=== PATIENT | male | born 1945 | race Caucasian/White ===

== ENCOUNTER 2019-03-24 11:32 | Inpatient (IN) | payer MEDICARE ==
[2019-03-24] MEDS ORDERED: Sodium Chloride 0.9% 10 ML Syringe FLUSH PRN (11:57)
[2019-03-24] MEDS: Levofloxacin/Dextrose 5%-Water 500 MG in Premix Bag 1 BAG IV SCH (13:00)
[2019-03-24] MEDS: Albuterol 0.083% 2.5 MG/3 ML Neb Soln NEB SCH ×3 (13:02→19:23)
[2019-03-24] MEDS: Dextrose 5%-0.9% NaCl 1,000 ML IV SCH (13:24)
[2019-03-24] MEDS: cefTRIAXone 1 GM in Sodium Chloride 0.9% 50 ML IV SCH (14:26)
--- NOTE | 2019-03-24 15:53 | CR ---
CHEST: 2 view CLINICAL HISTORY:Pneumonia COMPARISON:03/19/2019 FINDINGS: Patient is diffuse bilateral pulmonary infiltrates. The left lung infiltrate has increased since prior study. There is a new right perihilar infiltrate. There is a left pleural effusion Impression: Diffuse increasing bilateral pneumonic infiltrates Left pleural effusion
[2019-03-24] MEDS: metFORMIN 500 MG Tab PO SCH (16:31)
--- NOTE | 2019-03-24 18:23 | PCM.HP.2 ---
H&P History of Present Illness - General Date of Service: 03/24/19 Admit Problem/Dx: Admission Diagnosis/Problem Admission Diagnosis/Problem Respiratory distress Source of Information: Patient History Limitations: Reports: No Limitations - History of Present Illness Initial Comments - Free Text/Narative: Hollis came in last week and had pneumonia with fluid in his lungs and was started on Amoxicillin 500 mg tid. He came in today in respiratory distress with O2 pulse ox of 88%. with exertion went to 88%. He has not been improving and was admitted to the hospital. He has a history of pneumonia in the past 2 years ago. Onset of Symptoms: Reports: Other (gradual onset 1 week ago) Duration of Symptoms: Reports: Week(s): Worsens with: Reports: Movement - Related Data Allergies/Adverse Reactions: Allergies Allergy/AdvReac Type Severity Reaction Status Date / Time No Known Allergies Allergy Verified 09/07/14 10:19 Home Medications: Home Meds Lisinopril 20 mg PO DAILY 09/03/14 [History] Naproxen Sodium [Aleve] 440 mg PO BID 09/07/14 [History] Aspirin 81 mg PO DAILY 03/24/19 [History] Metoprolol Succinate [Toprol XL] 25 mg PO DAILY 03/24/19 [History] Simvastatin 20 mg PO DAILY 03/24/19 [History] metFORMIN [Glucophage] 500 mg PO BIDMEALS 03/24/19 [History] Past Medical History HEENT History: Reports: None Cardiovascular History: Reports: High Cholesterol, SOB on Exertion Respiratory History: Reports: SOB Gastrointestinal History: Reports: None Genitourinary History: Reports: None Musculoskeletal History: Reports: Osteoarthritis Neurological History: Reports: None Psychiatric History: Reports: None Endocrine/Metabolic History: Reports: Diabetes, Type II Hematologic History: Reports: None Immunologic History: Reports: None Oncologic (Cancer) History: Reports: None Dermatologic History: Reports: None - Infectious Disease History Infectious Disease History: Reports: None - Past Surgical History Head Surgeries/Procedures: Reports: None HEENT Surgical History: Reports: None Cardiovascular Surgical History: Reports: Coronary Artery Stent Respiratory Surgical History: Reports: None GI Surgical History: Reports: Colonoscopy Male Surgical History: Reports: None Endocrine Surgical History: Reports: None Neurological Surgical History: Reports: None Musculoskeletal Surgical History: Reports: Hip Replacement Oncologic Surgical History: Reports: None Dermatological Surgical History: Reports: None Social & Family History - Tobacco Use Smoking Status *Q: Never Smoker Second Hand Smoke Exposure: No - Caffeine Use Caffeine Use: Reports: Coffee - Alcohol Use Days Per Week of Alcohol Use: 7 Number of Drinks Per Day: 1 Total Drinks Per Week: 7 - Recreational Drug Use Recreational Drug Use: No H&P Review of Systems - Review of Systems: Review Of Systems: See Below General: Reports: Fever, Weakness, Decreased Appetite HEENT: Reports: No Symptoms Pulmonary: Reports: Shortness of Breath, Wheezing, Cough Cardiovascular: Reports: Dyspnea on Exertion Genitourinary: Reports: No Symptoms Skin: Reports: No Symptoms Psychiatric: Reports: No Symptoms Neurological: Reports: Difficulty Walking, Weakness Exam - Exam Exam: See Below - Vital Signs Vital Signs: Last Vital Signs Temp 98.2 F 03/24/19 14:59 Pulse 97 03/24/19 16:28 Resp 24 H 03/24/19 16:28 BP 157/51 H 03/24/19 14:59 Pulse Ox 91 L 03/24/19 16:28 Weight: 190 lb - Exam General: Alert, Oriented, Cooperative, Moderate Distress HEENT: PERRLA, Conjunctiva Clear, EACs Clear, Hearing Intact, Mucosa Moist & [place], Nares Patent, Normal Nasal Septum, Posterior Pharynx Clear, Pupils Equal, Pupils Reactive, TMs Clear Neck: Supple, Trachea Midline, 2 Lungs: Decreased Breath Sounds, Other (crepitations and lung sounds on the left.) Cardiovascular: Regular Rate, Regular Rhythm GI/Abdominal Exam: Normal Bowel Sounds, Soft, Non-Tender, No Organomegaly, No Distention, No Abnormal Bruit, No Mass, Pelvis Stable Back Exam: Normal Inspection, Full Range of Motion, NT Extremities: Normal Inspection, Normal Range of Motion, Non-Tender, No Pedal Edema, Normal Capillary Refill Peripheral Pulses: 1+: Radial (L), Radial (R) Neuro Extensive - Mental Status: Alert, Oriented x3 DTR: 1+: Bicep (L), Bicep (R) Psychiatric: Alert, Normal Affect, Normal Mood - Patient Data Lab Results Last 24 hrs: Laboratory Results - last 24 hr 03/24/19 03/24/19 03/24/19 Range/Units 12:02 12:28 12:28 WBC 15.5 H (4.5-11.0) K/uL RBC 4.62 (4.30-5.90) M/uL Hgb 13.6 (12.0-15.0) g/dL Hct 41.6 (40.0-54.0) % MCV 90 (80-98) fL MCH 29 (27-31) pg MCHC 33 (32-36) % Plt Count 446 H (150-400) K/uL Neut % (Auto) 90 H (36-66) % Lymph % (Auto) 4 L (24-44) % [place] % (Auto) 4 (2-6) % Eos % (Auto) 1 L (2-4) % Baso % (Auto) 0 (0-1) % Sodium 137 L (140-148) mmol/L Potassium 4.1 (3.6-5.2) mmol/L Chloride 100 (100-108) mmol/L Carbon Dioxide 27 (21-32) mmol/L Anion Gap 14.1 H (5.0-14.0) mmol/L BUN 21 H (7-18) mg/dL Creatinine 0.8 (0.8-1.3) mg/dL Est Cr Clr Drug Dosing 78.03 mL/min Estimated GFR (MDRD) > 60 (>60) Glucose 132 H (74-106) mg/dL Calcium 8.6 (8.5-10.1) mg/dL Total Bilirubin 0.6 (0.2-1.0) mg/dL AST 69 H (15-37) U/L ALT 88 H (12-78) U/L Alkaline Phosphatase 291 H (46-116) U/L Total Protein 6.6 (6.4-8.2) g/dL Albumin 2.1 L (3.4-5.0) g/dL Globulin 4.5 H (2.3-3.5) g/dL Albumin/Globulin Ratio 0.5 L (1.2-2.2) Urine Color [place] A (YELLOW) Urine Appearance Clear (CLEAR) Urine pH 6.0 (5.0-8.0) Ur Specific [place] 1.025 (1.008-1.030) Urine Protein 100 H (NEGATIVE) mg/dL Urine Glucose (UA) Negative (NEGATIVE) mg/dL Urine Ketones Negative (NEGATIVE) mg/dL Urine Occult Blood Trace-intact H (NEGATIVE) Urine Nitrite Negative (NEGATIVE) Urine Bilirubin Small H (NEGATIVE) Urine Urobilinogen 2.0 H (0.2-1.0) EU/dL Ur Leukocyte Esterase Negative (NEGATIVE) Urine RBC 0-5 (0-5) Urine WBC Not seen (0-5) Ur Epithelial Cells Not seen Amorphous Sediment Few Urine Bacteria Not seen Urine Mucus Not seen Result Diagrams: 03/24/19 12:28 03/24/19 12:28 Law Results Last 24 hrs: Microbiology 03/24/19 11:54 Gram Stain - Final Sputum - Expectorated Sepsis Event Note - Evaluation Sepsis Screening Result: No Definite Risk - Focused Exam Vital Signs: Vital Signs Temp Pulse Resp BP Pulse Ox Pulse Ox 03/24/19 16:28 97 24 H 91 L 03/24/19 14:59 98.2 F 95 20 157/51 H 90 L 03/24/19 13:02 90 96 03/24/19 11:35 97.8 F 89 20 145/77 H 86 L Date Exam was Performed: 03/24/19 Time Exam was Performed: 18:34 Problem List Initiated/Reviewed/Updated: Yes Orders Last 24hrs: Active Orders 24 hr Category Date Time Status Admission Status [Patient Status] [ADT] Routine ADT 03/24/19 11:45 Active Communication Order [RC] ROUTINE Care 03/24/19 12:13 Active Oxygen Therapy [RC] ASDIRECTED Care 03/24/19 12:00 Active Peripheral IV Care [RC] Q12H Care 03/24/19 11:57 Active RT Aerosol Therapy [RC] ASDIRECTED Care 03/24/19 12:00 Active Regular Diet [DIET] Diet 03/24/19 Lunch Active CULTURE BLOOD [BC] Urgent Lab 03/24/19 12:25 Received CULTURE BLOOD [BC] Urgent Lab 03/24/19 12:29 Received CULTURE RESPIRATORY + SMEAR [RM] Routine Lab 03/24/19 11:54 Results GLUCOSE POC LAB TO COLLECT [POC] QIDACANDBED Lab 03/24/19 21:00 Ordered GLUCOSE POC LAB TO COLLECT [POC] QIDACANDBED Lab 03/25/19 07:30 Ordered GLUCOSE POC LAB TO COLLECT [POC] QIDACANDBED Lab 03/25/19 11:30 Ordered GLUCOSE POC LAB TO COLLECT [POC] QIDACANDBED Lab 03/25/19 16:30 Ordered GLUCOSE POC LAB TO COLLECT [POC] QIDACANDBED Lab 03/25/19 21:00 Ordered GLUCOSE POC LAB TO COLLECT [POC] QIDACANDBED Lab 03/26/19 07:30 Ordered GLUCOSE POC LAB TO COLLECT [POC] QIDACANDBED Lab 03/26/19 11:30 Ordered GLUCOSE POC LAB TO COLLECT [POC] QIDACANDBED Lab 03/26/19 16:30 Ordered GLUCOSE POC LAB TO COLLECT [POC] QIDACANDBED Lab 03/26/19 21:00 Ordered GLUCOSE POC LAB TO COLLECT [POC] QIDACANDBED Lab 03/27/19 07:30 Ordered GLUCOSE POC LAB TO COLLECT [POC] QIDACANDBED Lab 03/27/19 11:30 Ordered GLUCOSE POC LAB TO COLLECT [POC] QIDACANDBED Lab 03/27/19 16:30 Ordered GLUCOSE POC LAB TO COLLECT [POC] QIDACANDBED Lab 03/27/19 21:00 Ordered GLUCOSE POC LAB TO COLLECT [POC] QIDACANDBED Lab 03/28/19 07:30 Ordered GLUCOSE POC LAB TO COLLECT [POC] QIDACANDBED Lab 03/28/19 11:30 Ordered GLUCOSE POC LAB TO COLLECT [POC] QIDACANDBED Lab 03/28/19 16:30 Ordered Albuterol [Proventil Neb Soln] Med 03/24/19 12:00 Active 2.5 mg NEB Q4H Aspirin Med 03/25/19 09:00 Active 81 mg PO DAILY Dextrose 5%-0.9% NaCl [Dextrose 5%-Normal Saline] 1,000 Med 03/24/19 12:00 Active ml IV ASDIRECTED Levofloxacin/Dextrose 5%-Water [Levaquin in D5W 500 MG/ Med 03/24/19 13:00 Active 100 ML] 500 mg Premix Bag 1 bag IV Q24H Metoprolol Succinate [Toprol XL] Med 03/25/19 09:00 Active 25 mg PO DAILY Simvastatin [Zocor] Med 03/25/19 09:00 Active 20 mg PO DAILY Sodium Chloride 0.9% [Saline Flush] Med 03/24/19 11:57 Active 10 ml FLUSH ASDIRECTED PRN cefTRIAXone [Rocephin] 1 gm Med 03/24/19 14:00 Active Sodium Chloride 0.9% [Normal Saline] 50 ml IV Q24H lisinopriL [Prinivil] Med 03/25/19 09:00 Active 20 mg PO DAILY metFORMIN [Glucophage] Med 03/24/19 17:00 Active 500 mg PO BIDMEALS Blood Culture x2 Reflex Set [OM.PC] Urgent Oth 03/24/19 11:52 Ordered Peripheral IV Insertion Adult [OM.PC] Routine Oth 03/24/19 11:57 Ordered Medication Orders Albuterol (Proventil Neb Soln) 2.5 mg NEB Q4H [facility] Last Admin: 03/24/19 16:29 Dose: 2.5 mg Admin: 03/24/19 13:02 Dose: 2.5 mg Aspirin (Aspirin) 81 mg PO DAILY [facility] Ceftriaxone Sodium 1 gm/ (Sodium Chloride) 50 mls @ 100 mls/hr IV Q24H [facility] Last Admin: 03/24/19 14:26 Dose: 100 mls/hr Dextrose/Sodium Chloride (Dextrose 5%-Normal Saline) 1,000 mls @ 75 mls/hr IV ASDIRECTED [facility] Last Admin: 03/24/19 13:24 Dose: 75 mls/hr Levofloxacin/Dextrose 500 mg/ (Premix) 100 mls @ 100 mls/hr IV Q24H [facility] Last Admin: 03/24/19 13:00 Dose: 100 mls/hr Lisinopril (Prinivil) 20 mg PO DAILY [facility] Metformin HCl (Glucophage) 500 mg PO BIDMEALS [facility] Last Admin: 03/24/19 16:31 Dose: 500 mg Metoprolol Succinate (Toprol Xl) 25 mg PO DAILY [facility] Simvastatin (Zocor) 20 mg PO DAILY [facility] Sodium Chloride (Saline Flush) 10 ml FLUSH ASDIRECTED PRN PRN Reason: Keep Vein Open Assessment/Plan Comment:: Assessment/Plan: #1. Pneumonia left side: Have admitted to the hospital and start antibiotics. Cultures are pending. He will be on Oxygen as his pul ox was 88%. #2. ASHD stable #3. HTN: Will continue with Meds #4. DM II will watch blood sugars. #5. HLD: will continue with Simvastatin 20 mg. - Mortality Measure Prognosis:: Good
[2019-03-24] MEDS: Acetaminophen 325 MG Tab PO PRN (19:31)
[2019-03-24] MEDS ORDERED: Simvastatin 20 MG Tab PO SCH (21:00)
[2019-03-24] MEDS: Insulin Lispro 100 Unit/ML 3 ML KwikPen SUBCUT SCH (22:01)
[2019-03-25] MEDS: Albuterol 0.083% 2.5 MG/3 ML Neb Soln NEB SCH ×7 (00:28→23:18)
[2019-03-25] MEDS: Dextrose 5%-0.9% NaCl 1,000 ML IV SCH ×2 (03:04→17:53)
[2019-03-25] MEDS: Insulin Lispro 100 Unit/ML 3 ML KwikPen SUBCUT SCH ×4 (07:26→21:30)
[2019-03-25] MEDS: Metoprolol Succinate 25 MG Tab.ER PO SCH (09:23)
[2019-03-25] MEDS: Aspirin 81 MG Tab.Chew PO SCH (09:23)
[2019-03-25] MEDS: Lisinopril 20 MG Tab PO SCH (09:24)
[2019-03-25] MEDS: metFORMIN 500 MG Tab PO SCH ×2 (09:24→16:52)
[2019-03-25] MEDS: Simvastatin 20 MG Tab PO SCH (09:24)
--- NOTE | 2019-03-25 13:23 | PCM.PN ---
- General Info Date of Service: 03/25/19 Functional Status: Reports: Pain Controlled - Review of Systems General: Reports: Weakness, Fatigue Pulmonary: Reports: Shortness of Breath, Cough, Sputum Cardiovascular: Reports: No Symptoms Gastrointestinal: Reports: No Symptoms Genitourinary: Reports: No Symptoms Musculoskeletal: Reports: No Symptoms Skin: Reports: No Symptoms Neurological: Reports: No Symptoms Psychiatric: Reports: No Symptoms - Patient Data Vitals - Most Recent: Last Vital Signs Temp 96.7 F 03/25/19 10:42 Pulse 78 03/25/19 10:48 Resp 16 03/25/19 10:42 BP 140/68 03/25/19 10:42 Pulse Ox 95 03/25/19 10:42 Weight - Most Recent: 190 lb I&O - Last 24 Hours: Intake & Output 03/24/19 03/25/19 03/25/19 22:59 06:59 14:59 Intake Total 811 978 240 Output Total 400 Balance 811 978 -160 Lab Results Last 24 Hours: Laboratory Results - last 24 hr 03/24/19 Range/Units 12:02 Urine Color [place] A (YELLOW) Urine Appearance Clear (CLEAR) Urine pH 6.0 (5.0-8.0) Ur Specific [place] 1.025 (1.008-1.030) Urine Protein 100 H (NEGATIVE) mg/dL Urine Glucose (UA) Negative (NEGATIVE) mg/dL Urine Ketones Negative (NEGATIVE) mg/dL Urine Occult Blood Trace-intact H (NEGATIVE) Urine Nitrite Negative (NEGATIVE) Urine Bilirubin Small H (NEGATIVE) Urine Urobilinogen 2.0 H (0.2-1.0) EU/dL Ur Leukocyte Esterase Negative (NEGATIVE) Urine RBC 0-5 (0-5) Urine WBC Not seen (0-5) Ur Epithelial Cells Not seen Amorphous Sediment Few Urine Bacteria Not seen Urine Mucus Not seen Law Results Last 24 Hours: Microbiology 03/24/19 12:29 Aerobic Blood Culture - Preliminary Blood - Arm, Right NO GROWTH AFTER 1 DAY Anaerobic Blood Culture - Preliminary NO GROWTH AFTER 1 DAY 03/24/19 12:25 Aerobic Blood Culture - Preliminary Blood - Arm, Left NO GROWTH AFTER 1 DAY Anaerobic Blood Culture - Preliminary NO GROWTH AFTER 1 DAY 03/24/19 11:54 Gram Stain - Final Sputum - Expectorated Med Orders - Current: Current Medications Acetaminophen (Tylenol) 650 mg PO Q4H PRN PRN Reason: Fever/Headache Last Admin: 03/24/19 19:31 Dose: 650 mg Albuterol (Proventil Neb Soln) 2.5 mg NEB Q4H [facility] Last Admin: 03/25/19 10:48 Dose: 2.5 mg Aspirin (Aspirin) 81 mg PO DAILY [facility] Last Admin: 03/25/19 09:23 Dose: 81 mg Ceftriaxone Sodium 1 gm/ (Sodium Chloride) 50 mls @ 100 mls/hr IV Q24H [facility] Last Admin: 03/24/19 14:26 Dose: 100 mls/hr Dextrose/Sodium Chloride (Dextrose 5%-Normal Saline) 1,000 mls @ 75 mls/hr IV ASDIRECTED [facility] Last Admin: 03/25/19 03:04 Dose: 75 mls/hr Levofloxacin/Dextrose 500 mg/ (Premix) 100 mls @ 100 mls/hr IV Q24H [facility] Last Admin: 03/24/19 13:00 Dose: 100 mls/hr Insulin Human Lispro (Humalog) 0 unit SUBCUT QIDACANDBED [facility]; Protocol Last Admin: 03/25/19 11:29 Dose: 3 unit Lisinopril (Prinivil) 20 mg PO DAILY [facility] Last Admin: 03/25/19 09:24 Dose: 20 mg Metformin HCl (Glucophage) 500 mg PO BIDMEALS [facility] Last Admin: 03/25/19 09:24 Dose: 500 mg Metoprolol Succinate (Toprol Xl) 25 mg PO DAILY [facility] Last Admin: 03/25/19 09:23 Dose: 25 mg Simvastatin (Zocor) 20 mg PO DAILY [facility] Last Admin: 03/25/19 09:24 Dose: 20 mg Sodium Chloride (Saline Flush) 10 ml FLUSH ASDIRECTED PRN PRN Reason: Keep Vein Open Discontinued Medications Albuterol (Proventil Neb Soln) 2.5 mg NEB Q4H [facility] Last Admin: 03/25/19 07:08 Dose: 2.5 mg - Exam General: Alert, Oriented HEENT: Pupils Equal, Pupils Reactive, EOMI, Mucous Membr. Moist/[place] Neck: Supple Lungs: Decreased Breath Sounds, Rales, Wheezing Cardiovascular: Regular Rate, Regular Rhythm GI/Abdominal Exam: Normal Bowel Sounds, Soft, Non-Tender, No Organomegaly, No Distention, No Abnormal Bruit, No Mass, Pelvis Stable Back Exam: Normal Inspection, Full Range of Motion Extremities: Normal Inspection, Normal Range of Motion, Non-Tender, No Pedal Edema, Normal Capillary Refill Peripheral Pulses: 1+: Radial (L), Radial (R) Skin: Warm, Dry, Intact Neurological: No New Focal Deficit Psy/Mental Status: Alert, Normal Affect, Normal Mood Sepsis Event Note - Evaluation Sepsis Screening Result: No Definite Risk - Focused Exam Vital Signs: Vital Signs Temp Pulse Pulse Resp BP BP Pulse Ox 03/25/19 10:48 78 03/25/19 10:42 96.7 F 74 16 140/68 95 03/25/19 09:24 128/56 L 03/25/19 09:23 80 128/56 L 03/25/19 07:09 88 03/25/19 07:00 98.1 F 81 20 136/68 91 L 03/25/19 03:00 98.7 F 82 18 144/78 H 91 L Date Exam was Performed: 03/25/19 Time Exam was Performed: 13:19 - Problem List Review Problem List Initiated/Reviewed/Updated: Yes - My Orders Last 24 Hours: My Active Orders 03/24/19 12:25 CULTURE BLOOD [BC] Urgent 03/24/19 12:29 CULTURE BLOOD [BC] Urgent 03/24/19 13:00 Levofloxacin/Dextrose 5%-Water [Levaquin in D5W 500 MG/100 ML] 500 mg Premix Bag 1 bag IV Q24H 03/24/19 14:00 cefTRIAXone [Rocephin] 1 gm Sodium Chloride 0.9% [Normal Saline] 50 ml IV Q24H 03/24/19 17:00 metFORMIN [Glucophage] 500 mg PO BIDMEALS 03/24/19 19:18 Acetaminophen [Tylenol] 650 mg PO Q4H PRN 03/24/19 21:24 Insulin Lispro [HumaLOG] See Protocol SUBCUT QIDACANDBED 03/24/19 22:46 RT [place] [RESPCARE] Routine 03/25/19 09:00 Aspirin 81 mg PO DAILY Metoprolol Succinate [Toprol XL] 25 mg PO DAILY Simvastatin [Zocor] 20 mg PO DAILY lisinopriL [Prinivil] 20 mg PO DAILY 03/25/19 11:00 Albuterol [Proventil Neb Soln] 2.5 mg NEB Q4H 03/25/19 16:30 GLUCOSE POC LAB TO COLLECT [POC] QIDACANDBED 03/25/19 21:00 GLUCOSE POC LAB TO COLLECT [POC] QIDACANDBED 03/26/19 07:30 GLUCOSE POC LAB TO COLLECT [POC] QIDACANDBED 03/26/19 11:30 GLUCOSE POC LAB TO COLLECT [POC] QIDACANDBED 03/26/19 16:30 GLUCOSE POC LAB TO COLLECT [POC] QIDACANDBED 03/26/19 21:00 GLUCOSE POC LAB TO COLLECT [POC] QIDACANDBED 03/27/19 07:30 GLUCOSE POC LAB TO COLLECT [POC] QIDACANDBED 03/27/19 11:30 GLUCOSE POC LAB TO COLLECT [POC] QIDACANDBED 03/27/19 16:30 GLUCOSE POC LAB TO COLLECT [POC] QIDACANDBED 03/27/19 21:00 GLUCOSE POC LAB TO COLLECT [POC] QIDACANDBED 03/28/19 07:30 GLUCOSE POC LAB TO COLLECT [POC] QIDACANDBED 03/28/19 11:30 GLUCOSE POC LAB TO COLLECT [POC] QIDACANDBED 03/28/19 16:30 GLUCOSE POC LAB TO COLLECT [POC] QIDACANDBED - Plan Plan:: Assessment/Plan: #1. Pneumonia bilateral: Have admitted to the hospital and start antibiotics. Cultures are pending. He will be on Oxygen as his pul ox was 88%. O2 is 93% on 3 liters. Will continue with oxygen. He is improving and will continue with antibiotics. #2. ASHD stable #3. HTN: Will continue with Meds #4. DM II will watch blood sugars. #5. HLD: will continue with Simvastatin 20 mg.
[2019-03-25] MEDS: Levofloxacin/Dextrose 5%-Water 500 MG in Premix Bag 1 BAG IV SCH (13:38)
[2019-03-25] MEDS: cefTRIAXone 1 GM in Sodium Chloride 0.9% 50 ML IV SCH (15:17)
[2019-03-25] MEDS: Acetaminophen 325 MG Tab PO PRN ×2 (16:52→23:30)
[2019-03-26] MEDS: Albuterol 0.083% 2.5 MG/3 ML Neb Soln NEB SCH ×6 (03:31→22:58)
[2019-03-26] MEDS: Insulin Lispro 100 Unit/ML 3 ML KwikPen SUBCUT SCH ×4 (07:37→22:09)
[2019-03-26] MEDS: Dextrose 5%-0.9% NaCl 1,000 ML IV SCH (07:40)
[2019-03-26] MEDS: metFORMIN 500 MG Tab PO SCH ×2 (08:13→17:11)
[2019-03-26] MEDS: Aspirin 81 MG Tab.Chew PO SCH (08:13)
[2019-03-26] MEDS: Simvastatin 20 MG Tab PO SCH (08:13)
[2019-03-26] MEDS: Metoprolol Succinate 25 MG Tab.ER PO SCH (08:14)
[2019-03-26] MEDS: Lisinopril 20 MG Tab PO SCH (08:14)
[2019-03-26] MEDS: Levofloxacin/Dextrose 5%-Water 500 MG in Premix Bag 1 BAG IV SCH (12:12)
[2019-03-26] MEDS: cefTRIAXone 1 GM in Sodium Chloride 0.9% 50 ML IV SCH (15:13)
[2019-03-26] MEDS ORDERED: Sodium Chloride 0.9% 10 ML Syringe FLUSH PRN (16:54)
--- NOTE | 2019-03-26 17:10 | PCM.PN ---
- General Info Date of Service: 03/26/19 Functional Status: Reports: Pain Controlled - Review of Systems General: Reports: No Symptoms HEENT: Reports: No Symptoms Pulmonary: Reports: Shortness of Breath Cardiovascular: Reports: No Symptoms Gastrointestinal: Reports: No Symptoms Genitourinary: Reports: No Symptoms Musculoskeletal: Reports: No Symptoms Skin: Reports: No Symptoms Neurological: Reports: No Symptoms Psychiatric: Reports: No Symptoms - Patient Data Vitals - Most Recent: Last Vital Signs Temp 97.6 F 03/26/19 16:10 Pulse 83 03/26/19 16:10 Resp 22 H 03/26/19 16:10 BP 164/67 H 03/26/19 16:10 Pulse Ox 95 03/26/19 17:00 Weight - Most Recent: 190 lb I&O - Last 24 Hours: Intake & Output 03/26/19 03/26/19 03/26/19 06:59 14:59 22:59 Intake Total 600 750 600 Output Total 150 450 400 Balance 450 300 200 Law Results Last 24 Hours: Microbiology 03/24/19 12:29 Aerobic Blood Culture - Preliminary Blood - Arm, Right NO GROWTH AFTER 2 DAYS Anaerobic Blood Culture - Preliminary NO GROWTH AFTER 2 DAYS 03/24/19 12:25 Aerobic Blood Culture - Preliminary Blood - Arm, Left NO GROWTH AFTER 2 DAYS Anaerobic Blood Culture - Preliminary NO GROWTH AFTER 2 DAYS 03/24/19 11:54 Gram Stain - Final Sputum - Expectorated Respiratory Culture - Final NORMAL RESPIRATORY SAM 2 DAYS Med Orders - Current: Current Medications Acetaminophen (Tylenol) 650 mg PO Q4H PRN PRN Reason: Fever/Headache Last Admin: 03/25/19 23:30 Dose: 650 mg Albuterol (Proventil Neb Soln) 2.5 mg NEB Q4H [facility] Last Admin: 03/26/19 14:45 Dose: 2.5 mg Aspirin (Aspirin) 81 mg PO DAILY [facility] Last Admin: 03/26/19 08:13 Dose: 81 mg Ceftriaxone Sodium 1 gm/ (Sodium Chloride) 50 mls @ 100 mls/hr IV Q24H [facility] Last Admin: 03/26/19 15:13 Dose: 100 mls/hr Dextrose/Sodium Chloride (Dextrose 5%-Normal Saline) 1,000 mls @ 75 mls/hr IV ASDIRECTED [facility] Last Admin: 03/26/19 07:40 Dose: 75 mls/hr Levofloxacin/Dextrose 500 mg/ (Premix) 100 mls @ 100 mls/hr IV Q24H [facility] Last Admin: 03/26/19 12:12 Dose: 100 mls/hr Insulin Human Lispro (Humalog) 0 unit SUBCUT QIDACANDBED [facility]; Protocol Last Admin: 03/26/19 12:12 Dose: 1 unit Lisinopril (Prinivil) 20 mg PO DAILY [facility] Last Admin: 03/26/19 08:14 Dose: 20 mg Metformin HCl (Glucophage) 500 mg PO BIDMEALS [facility] Last Admin: 03/26/19 08:13 Dose: 500 mg Metoprolol Succinate (Toprol Xl) 25 mg PO DAILY [facility] Last Admin: 03/26/19 08:14 Dose: 25 mg Simvastatin (Zocor) 20 mg PO DAILY [facility] Last Admin: 03/26/19 08:13 Dose: 20 mg Sodium Chloride (Saline Flush) 10 ml FLUSH ASDIRECTED PRN PRN Reason: Keep Vein Open Sodium Chloride (Saline Flush) 10 ml FLUSH ASDIRECTED PRN PRN Reason: Keep Vein Open Discontinued Medications Albuterol (Proventil Neb Soln) 2.5 mg NEB Q4H [facility] Last Admin: 03/25/19 07:08 Dose: 2.5 mg - Exam General: Alert, Oriented HEENT: Pupils Equal, Pupils Reactive, EOMI, Mucous Membr. Moist/[place] Neck: Supple Lungs: Decreased Breath Sounds Cardiovascular: Regular Rate, Regular Rhythm GI/Abdominal Exam: Normal Bowel Sounds, Soft, Non-Tender, No Organomegaly, No Distention, No Abnormal Bruit, No Mass, Pelvis Stable Extremities: Normal Inspection, Normal Range of Motion, Non-Tender, No Pedal Edema, Normal Capillary Refill Peripheral Pulses: 1+: Radial (L), Radial (R) Skin: Warm, Dry, Intact Neurological: No New Focal Deficit Psy/Mental Status: Alert, Normal Affect, Normal Mood Sepsis Event Note - Evaluation Sepsis Screening Result: No Definite Risk - Focused Exam Vital Signs: Vital Signs Temp Pulse Pulse Resp BP BP Pulse Ox 03/26/19 17:00 95 03/26/19 16:10 97.6 F 83 22 H 164/67 H 95 03/26/19 14:46 82 03/26/19 10:55 96.5 F 79 16 141/85 H 98 03/26/19 10:51 76 03/26/19 08:14 78 141/68 H 03/26/19 07:13 78 03/26/19 07:00 95.7 F 78 16 141/67 H 94 L Date Exam was Performed: 03/26/19 Time Exam was Performed: 22:50 - Problem List Review Problem List Initiated/Reviewed/Updated: Yes - My Orders Last 24 Hours: My Active Orders 03/25/19 18:00 SCD [Sequential Compression Device] [OM.PC] Routine 03/26/19 16:54 Sodium Chloride 0.9% [Saline Flush] 10 ml FLUSH ASDIRECTED PRN Saline Lock Insert [OM.PC] Routine 03/26/19 21:00 GLUCOSE POC LAB TO COLLECT [POC] QIDACANDBED 03/27/19 05:11 CXR [Chest 2V] [CR] Routine BASIC METABOLIC PANEL,BMP [CHEM] Routine CBC WITH AUTO DIFF [HEME] Routine 03/27/19 07:30 GLUCOSE POC LAB TO COLLECT [POC] QIDACANDBED 03/27/19 11:30 GLUCOSE POC LAB TO COLLECT [POC] QIDACANDBED 03/27/19 16:30 GLUCOSE POC LAB TO COLLECT [POC] QIDACANDBED 03/27/19 21:00 GLUCOSE POC LAB TO COLLECT [POC] QIDACANDBED 03/28/19 07:30 GLUCOSE POC LAB TO COLLECT [POC] QIDACANDBED 03/28/19 11:30 GLUCOSE POC LAB TO COLLECT [POC] QIDACANDBED 03/28/19 16:30 GLUCOSE POC LAB TO COLLECT [POC] QIDACANDBED - Plan Plan:: Assessment/Plan: #1. Pneumonia bilateral: He is clinically improving so will continue with the antibiotics. Cultures are pending. Oxygen is improving as he is on 2 liters of oxygen will decrease the flow. Will get blood work and CXR in the morning and consider a CT of the abd on Sunday. #2. ASHD stable #3. HTN: Will continue with Meds #4. DM II will watch blood sugars. #5. HLD: will continue with Simvastatin 20 mg.
[2019-03-27] MEDS: Albuterol 0.083% 2.5 MG/3 ML Neb Soln NEB SCH ×6 (03:54→22:56)
--- NOTE | 2019-03-27 05:30 | CRLCR ---
INDICATION: Pneumonia. COMPARISON: 03/19/2019 FINDINGS: PA and lateral views of the chest were obtained. There are new areas of moderate infiltrate in the right lateral mid-upper lung, in the posterior segment of the right upper lobe, and in the left perihilar lung superiorly, in the left upper lobe. These are areas of new bilateral upper lobe pneumonia. There continues to be moderate infiltrate throughout the left lower lobe consistent with stable moderate left lower lobe pneumonia. There is probably no change in a small left pleural effusion. No pleural effusion is seen on the right. The heart remains normal in size. The mediastinum is normal in appearance. The osseous structures are normal in appearance for the patient`s age. IMPRESSION: New moderate bilateral upper lobe infiltrates consistent with developing bilateral upper lobe pneumonias. No change in prominent consolidation of the left lower lobe consistent with left lower lobe pneumonia. No change in probable small left pleural effusion. Dictated by Mitch Dorman MD @ Mar 27 2019 5:27AM Signed by Dr. Mitch Dorman @ Mar 27 2019 5:29AM
[2019-03-27] MEDS: Insulin Lispro 100 Unit/ML 3 ML KwikPen SUBCUT SCH ×4 (07:54→21:30)
[2019-03-27] MEDS: metFORMIN 500 MG Tab PO SCH ×2 (07:54→16:45)
[2019-03-27] MEDS: Simvastatin 20 MG Tab PO SCH (07:59)
[2019-03-27] MEDS: Metoprolol Succinate 25 MG Tab.ER PO SCH (07:59)
[2019-03-27] MEDS: Lisinopril 20 MG Tab PO SCH (07:59)
[2019-03-27] MEDS: Aspirin 81 MG Tab.Chew PO SCH (07:59)
[2019-03-27] MEDS: Levofloxacin/Dextrose 5%-Water 500 MG in Premix Bag 1 BAG IV SCH (13:39)
[2019-03-27] MEDS: cefTRIAXone 1 GM in Sodium Chloride 0.9% 50 ML IV SCH (14:42)
--- NOTE | 2019-03-27 18:39 | PCM.PN ---
- General Info Date of Service: 03/27/19 Functional Status: Reports: Pain Controlled - Review of Systems General: Reports: Weakness HEENT: Reports: No Symptoms Pulmonary: Reports: Shortness of Breath, Cough Cardiovascular: Reports: No Symptoms Gastrointestinal: Reports: No Symptoms Genitourinary: Reports: No Symptoms Musculoskeletal: Reports: No Symptoms Skin: Reports: No Symptoms Neurological: Reports: No Symptoms Psychiatric: Reports: No Symptoms - Patient Data Vitals - Most Recent: Last Vital Signs Temp 96.7 F 03/27/19 14:56 Pulse 83 03/27/19 14:56 Resp 18 03/27/19 14:56 BP 147/75 H 03/27/19 14:56 Pulse Ox 94 L 03/27/19 14:56 Weight - Most Recent: 190 lb I&O - Last 24 Hours: Intake & Output 03/27/19 03/27/19 03/27/19 06:59 14:59 22:59 Intake Total 100 1380 Balance 100 1380 Lab Results Last 24 Hours: Laboratory Results - last 24 hr 03/27/19 03/27/19 03/27/19 Range/Units 04:10 04:10 09:10 WBC 8.4 (4.5-11.0) K/uL RBC 4.24 L (4.30-5.90) M/uL Hgb 12.4 (12.0-15.0) g/dL Hct 39.0 L (40.0-54.0) % MCV 92 (80-98) fL MCH 29 (27-31) pg MCHC 32 (32-36) % Plt Count 646 H (150-400) K/uL Neut % (Auto) 71 H (36-66) % Lymph % (Auto) 15 L (24-44) % Burnett % (Auto) 10 H (2-6) % Eos % (Auto) 3 (2-4) % Baso % (Auto) 1 (0-1) % Sodium 137 L (140-148) mmol/L Potassium 3.9 (3.6-5.2) mmol/L Chloride 100 (100-108) mmol/L Carbon Dioxide 28 (21-32) mmol/L Anion Gap 12.9 (5.0-14.0) mmol/L BUN 13 (7-18) mg/dL Creatinine 0.8 (0.8-1.3) mg/dL Est Cr Clr Drug Dosing 78.03 mL/min Estimated GFR (MDRD) > 60 (>60) Glucose 141 H (74-106) mg/dL Calcium 8.0 L (8.5-10.1) mg/dL AST 90 H (15-37) U/L ALT 115 H (12-78) U/L Law Results Last 24 Hours: Microbiology 03/24/19 12:25 Aerobic Blood Culture - Preliminary Blood - Arm, Left NO GROWTH AFTER 3 DAYS Anaerobic Blood Culture - Preliminary NO GROWTH AFTER 3 DAYS 03/24/19 12:29 Aerobic Blood Culture - Preliminary Blood - Arm, Right NO GROWTH AFTER 3 DAYS Anaerobic Blood Culture - Preliminary NO GROWTH AFTER 3 DAYS Med Orders - Current: Current Medications Acetaminophen (Tylenol) 650 mg PO Q4H PRN PRN Reason: Fever/Headache Last Admin: 03/25/19 23:30 Dose: 650 mg Albuterol (Proventil Neb Soln) 2.5 mg NEB Q4H [facility] Last Admin: 03/27/19 14:34 Dose: 2.5 mg Aspirin (Aspirin) 81 mg PO DAILY [facility] Last Admin: 03/27/19 07:59 Dose: 81 mg Ceftriaxone Sodium 1 gm/ (Sodium Chloride) 50 mls @ 100 mls/hr IV Q24H [facility] Last Admin: 03/27/19 14:42 Dose: 100 mls/hr Dextrose/Sodium Chloride (Dextrose 5%-Normal Saline) 1,000 mls @ 75 mls/hr IV ASDIRECTED [facility] Last Admin: 03/26/19 07:40 Dose: 75 mls/hr Levofloxacin/Dextrose 500 mg/ (Premix) 100 mls @ 100 mls/hr IV Q24H [facility] Last Admin: 03/27/19 13:39 Dose: 100 mls/hr Insulin Human Lispro (Humalog) 0 unit SUBCUT QIDACANDBED [facility]; Protocol Last Admin: 03/27/19 16:44 Dose: 2 unit Lisinopril (Prinivil) 20 mg PO DAILY [facility] Last Admin: 03/27/19 07:59 Dose: 20 mg Metformin HCl (Glucophage) 500 mg PO BIDMEALS [facility] Last Admin: 03/27/19 16:45 Dose: 500 mg Metoprolol Succinate (Toprol Xl) 25 mg PO DAILY [facility] Last Admin: 12/26/19 07:59 Dose: 25 mg Simvastatin (Zocor) 20 mg PO DAILY [facility] Last Admin: 03/27/19 07:59 Dose: 20 mg Sodium Chloride (Saline Flush) 10 ml FLUSH ASDIRECTED PRN PRN Reason: Keep Vein Open Discontinued Medications Albuterol (Proventil Neb Soln) 2.5 mg NEB Q4H [facility] Last Admin: 03/25/19 07:08 Dose: 2.5 mg - Exam General: Alert, Oriented HEENT: Pupils Equal, Pupils Reactive, EOMI, Mucous Membr. Moist/[place] Neck: Supple Lungs: Normal Respiratory Effort, Decreased Breath Sounds Cardiovascular: Regular Rate, Regular Rhythm GI/Abdominal Exam: Normal Bowel Sounds, Soft, Non-Tender, No Organomegaly, No Distention, No Abnormal Bruit, No Mass, Pelvis Stable (Male) Exam: No Hernia, Normal Inspection, Normal Prostate, Circumcised Back Exam: Normal Inspection, Full Range of Motion Extremities: Normal Inspection, Normal Range of Motion, Non-Tender, No Pedal Edema, Normal Capillary Refill Peripheral Pulses: 1+: Radial (L), Radial (R) Skin: Warm, Dry, Intact Wound/Incisions: Healing Well Neurological: No New Focal Deficit Psy/Mental Status: Alert, Normal Affect, Normal Mood Sepsis Event Note - Evaluation Sepsis Screening Result: No Definite Risk - Focused Exam Vital Signs: Vital Signs Temp Pulse Pulse Resp BP BP Pulse Ox 03/27/19 14:56 96.7 F 83 18 147/75 H 94 L 03/27/19 11:00 95.9 F 79 18 119/59 L 92 L 03/27/19 10:38 76 03/27/19 07:59 73 133/83 03/27/19 07:00 96.8 F 79 20 133/83 94 L Date Exam was Performed: 03/28/19 Time Exam was Performed: 13:09 - Problem List Review Problem List Initiated/Reviewed/Updated: Yes - My Orders Last 24 Hours: My Active Orders 03/27/19 21:00 GLUCOSE POC LAB TO COLLECT [POC] QIDACANDBED 03/28/19 05:11 Chest w Cont [CT] Routine 03/28/19 07:30 GLUCOSE POC LAB TO COLLECT [POC] QIDACANDBED 03/28/19 11:30 GLUCOSE POC LAB TO COLLECT [POC] QIDACANDBED 03/28/19 16:30 GLUCOSE POC LAB TO COLLECT [POC] QIDACANDBED 03/28/19 Breakfast NPO After Midnight [Nothing per Oral After Midnight Diet] [DIET] - Plan Plan:: Assessment/Plan: #1. Pneumonia bilateral: He is clinically improving so will continue with the antibiotics. Cultures are pending. Oxygen is improving as he is on 2 liters of oxygen will decrease the flow. CXR still shows bilat infiltrates CT of chest in the morning. #2. ASHD stable #3. HTN: Will continue with Meds #4. DM II stable #5. HLD: will continue with Simvastatin 20 mg.
[2019-03-28] MEDS: Albuterol 0.083% 2.5 MG/3 ML Neb Soln NEB SCH ×3 (04:07→10:42)
[2019-03-28] MEDS ORDERED: Sodium Chloride 0.9% 75 ML IV ONE (07:11)
[2019-03-28] MEDS ORDERED: Sodium Chloride 0.9% 10 ML Syringe FLUSH PRN (07:11)
[2019-03-28] MEDS ORDERED: Iopamidol 612 MG/ML 100 ML Bottle IV PRN (07:11)
--- NOTE | 2019-03-28 08:05 | CRLCT ---
INDICATION: Pneumonia TECHNIQUE: CT chest was acquired with 100 cc Isovue 300 IV contrast. COMPARISON: Chest x-ray March 19, 2019. FINDINGS: Lungs and pleural: A dense airspace consolidation with air bronchograms is in the left lower lobe. Smaller infiltrates are also present in both upper lobes and the right lower lobe. There are 2 adjacent peripheral noncalcified nodules in the right lower lobe on series 3, image 57 with a larger nodule measuring 9 mm. Small to moderate size left pleural effusion and small right pleural effusion. No pneumothorax. Heart and vasculature: Heart size is normal. Thoracic aorta and pulmonary artery are normal in caliber.No sign of pulmonary embolism. Lymph nodes/mediastinum: Mild right hilar lymphadenopathy. No other masses. Thyroid gland is normal. Chest wall: No masses. Upper abdomen: Normal. Bones: Unremarkable for age. IMPRESSION: 1. Multi lobar pneumonia most severe in the left lower lobe. 2. There are 2 subcentimeter adjacent peripheral nodules in the right lower lobe which are likely benign. 3. Small bilateral pleural effusions. Dictated by Tk Gibson MD @ 03/28/2019 8:00:53 AM Please note that all CT scans at this facility use dose modulation, iterative reconstruction, and/or weight-based dosing when appropriate to reduce radiation dose to as low as reasonably achievable. Dictated by: Tk Gibson MD @ 03/28/2019 08:03:23 (Electronically Signed)
--- NOTE | 2019-03-28 08:33 | CRLUS ---
INDICATION: Abnormal liver function tests. TECHNIQUE: Ultrasound abdomen complete. Sonographic images of the entire abdomen were obtained using brandt-scale and color Doppler. COMPARISON: None. FINDINGS: Liver: Normal in size and echotexture. No masses. No intrahepatic biliary dilatation. Main portal vein is patent. Gallbladder: Moderately dilated. No stones or sludge. Normal wall thickness. No pericholecystic fluid. Common bile duct: 5 mm. Pancreas: Normal in size and appearance. Spleen: Normal in size and appearance. Kidneys: Both kidneys are normal in size. Normal echotexture and cortex. There is moderate bilateral hydronephrosis. Vasculature: Proximal abdominal aorta and IVC are normal in caliber. IMPRESSION: 1. Unremarkable liver. 2. Moderate distention of the gallbladder which is otherwise unremarkable. No biliary dilatation. 3. Moderate bilateral hydronephrosis of uncertain etiology and chronicity. Dictated by Tk Gibson MD @ 03/28/2019 8:32:49 AM Dictated by: Tk Gibson MD @ 03/28/2019 08:32:53 (Electronically Signed)
[2019-03-28] MEDS: Insulin Lispro 100 Unit/ML 3 ML KwikPen SUBCUT SCH ×2 (09:00→12:59)
[2019-03-28] MEDS: Lisinopril 20 MG Tab PO SCH (09:01)
[2019-03-28] MEDS: metFORMIN 500 MG Tab PO SCH (09:01)
[2019-03-28] MEDS: Aspirin 81 MG Tab.Chew PO SCH (09:01)
[2019-03-28] MEDS: Simvastatin 20 MG Tab PO SCH (09:02)
[2019-03-28] MEDS: Metoprolol Succinate 25 MG Tab.ER PO SCH (09:02)
[2019-03-28 10:39] VITALS: BP 146/66
[2019-03-28 10:44] VITALS: PULSE 78
[2019-03-28] MEDS: Levofloxacin/Dextrose 5%-Water 500 MG in Premix Bag 1 BAG IV SCH (12:59)
--- NOTE | 2019-03-28 13:20 | PCM.PN ---
- General Info Date of Service: 03/28/19 Functional Status: Reports: Pain Controlled - Review of Systems General: Reports: No Symptoms HEENT: Reports: No Symptoms Pulmonary: Reports: Cough Cardiovascular: Reports: No Symptoms Gastrointestinal: Reports: No Symptoms Genitourinary: Reports: No Symptoms Musculoskeletal: Reports: No Symptoms Skin: Reports: No Symptoms Neurological: Reports: No Symptoms Psychiatric: Reports: No Symptoms - Patient Data Vitals - Most Recent: Last Vital Signs Temp 98.2 F 03/28/19 10:39 Pulse 78 03/28/19 10:42 Resp 16 03/28/19 10:39 BP 146/66 H 03/28/19 10:39 Pulse Ox 94 L 03/28/19 10:39 Weight - Most Recent: 190 lb I&O - Last 24 Hours: Intake & Output 03/27/19 03/28/19 03/28/19 22:59 06:59 14:59 Intake Total 1620 960 Balance 1620 960 Lab Results Last 24 Hours: Laboratory Results - last 24 hr 03/28/19 Range/Units 04:10 Sodium 137 L (140-148) mmol/L Potassium 4.0 (3.6-5.2) mmol/L Chloride 101 (100-108) mmol/L Carbon Dioxide 30 (21-32) mmol/L Anion Gap 10.0 (5.0-14.0) mmol/L BUN 13 (7-18) mg/dL Creatinine 0.8 (0.8-1.3) mg/dL Est Cr Clr Drug Dosing 78.03 mL/min Estimated GFR (MDRD) > 60 (>60) Glucose 138 H (74-106) mg/dL Calcium 8.3 L (8.5-10.1) mg/dL Total Bilirubin 0.4 (0.2-1.0) mg/dL AST 59 H (15-37) U/L ALT 88 H (12-78) U/L Alkaline Phosphatase 235 H (46-116) U/L Total Protein 5.9 L (6.4-8.2) g/dL Albumin 2.0 L (3.4-5.0) g/dL Globulin 3.9 H (2.3-3.5) g/dL Albumin/Globulin Ratio 0.5 L (1.2-2.2) Law Results Last 24 Hours: Microbiology 03/24/19 12:25 Aerobic Blood Culture - Preliminary Blood - Arm, Left NO GROWTH AFTER 4 DAYS Anaerobic Blood Culture - Preliminary NO GROWTH AFTER 4 DAYS 03/24/19 12:29 Aerobic Blood Culture - Preliminary Blood - Arm, Right NO GROWTH AFTER 4 DAYS Anaerobic Blood Culture - Preliminary NO GROWTH AFTER 4 DAYS Med Orders - Current: Current Medications Acetaminophen (Tylenol) 650 mg PO Q4H PRN PRN Reason: Fever/Headache Last Admin: 03/25/19 23:30 Dose: 650 mg Albuterol (Proventil Neb Soln) 2.5 mg NEB Q4H [facility] Last Admin: 03/28/19 10:42 Dose: 2.5 mg Aspirin (Aspirin) 81 mg PO DAILY [facility] Last Admin: 03/28/19 09:01 Dose: 81 mg Ceftriaxone Sodium 1 gm/ (Sodium Chloride) 50 mls @ 100 mls/hr IV Q24H [facility] Last Admin: 03/27/19 14:42 Dose: 100 mls/hr Dextrose/Sodium Chloride (Dextrose 5%-Normal Saline) 1,000 mls @ 75 mls/hr IV ASDIRECTED [facility] Last Admin: 03/26/19 07:40 Dose: 75 mls/hr Levofloxacin/Dextrose 500 mg/ (Premix) 100 mls @ 100 mls/hr IV Q24H [facility] Last Admin: 03/28/19 12:59 Dose: Not Given Insulin Human Lispro (Humalog) 0 unit SUBCUT QIDACANDBED [facility]; Protocol Last Admin: 03/28/19 12:59 Dose: Not Given Lisinopril (Prinivil) 20 mg PO DAILY [facility] Last Admin: 03/28/19 09:01 Dose: 20 mg Metformin HCl (Glucophage) 500 mg PO BIDMEALS [facility] Last Admin: 03/28/19 09:01 Dose: 500 mg Metoprolol Succinate (Toprol Xl) 25 mg PO DAILY [facility] Last Admin: 03/28/19 09:02 Dose: 25 mg Simvastatin (Zocor) 20 mg PO DAILY [facility] Last Admin: 03/28/19 09:02 Dose: 20 mg Sodium Chloride (Saline Flush) 10 ml FLUSH ASDIRECTED PRN PRN Reason: Keep Vein Open Discontinued Medications Albuterol (Proventil Neb Soln) 2.5 mg NEB Q4H [facility] Last Admin: 03/25/19 07:08 Dose: 2.5 mg Sodium Chloride (Normal Saline) 75 mls @ 3 mls/sec IV ONETIME ONE Stop: 03/28/19 07:12 Last Admin: 03/28/19 07:32 Dose: 3 mls/sec Iopamidol (Isovue-300 (61%)) 100 ml IV . DIRECTED PRN PRN Reason: RADIOLOGY EXAM Stop: 03/28/19 07:12 Last Admin: 03/28/19 07:32 Dose: 100 ml Sodium Chloride (Saline Flush) 10 ml FLUSH ONETIME PRN PRN Reason: PER RADIOLOGY PROTOCOL Stop: 03/28/19 07:12 Last Admin: 03/28/19 07:32 Dose: 10 ml - Exam General: Alert, Oriented HEENT: Pupils Equal, Pupils Reactive, EOMI, Mucous Membr. Moist/[place] Neck: Supple Lungs: Decreased Breath Sounds Cardiovascular: Regular Rate, Regular Rhythm GI/Abdominal Exam: Normal Bowel Sounds, Soft, Non-Tender, No Organomegaly, No Distention, No Abnormal Bruit, No Mass, Pelvis Stable Back Exam: Normal Inspection, Full Range of Motion Peripheral Pulses: 0: Radial (L), Radial (R) Sepsis Event Note - Evaluation Sepsis Screening Result: No Definite Risk - Focused Exam Vital Signs: Vital Signs Temp Pulse Pulse Resp BP BP Pulse Ox 03/28/19 10:42 78 03/28/19 10:39 98.2 F 81 16 146/66 H 94 L 03/28/19 09:02 82 138/77 03/28/19 09:01 138/77 03/28/19 07:19 97.7 F 82 16 138/77 92 L 03/28/19 06:58 76 03/28/19 04:00 96.5 F 73 18 135/72 98 Date Exam was Performed: 03/28/19 Time Exam was Performed: 13:13 - Problem List Review Problem List Initiated/Reviewed/Updated: Yes - My Orders Last 24 Hours: My Active Orders 03/28/19 16:30 GLUCOSE POC LAB TO COLLECT [POC] QIDACANDBED 03/28/19 Breakfast NPO After Midnight [Nothing per Oral After Midnight Diet] [DIET] - Plan Plan:: Assessment/Plan: #1. Pneumonia bilateral: He is clinically improving so will continue with the antibiotics. Cultures are show no growth. Oxygen is off. CXR still shows bilat infiltrates CT of chest shows the pneumonia. will follow up in 1-2 weeks. #2. ASHD stable #3. HTN: Will continue with Meds #4. DM II stable #5. HLD: will continue with Simvastatin 20 mg. Plan home today on PO Levaquin and Duricef.
--- NOTE | 2019-03-28 13:28 | PCM.DCSUM1 ---
Discharge Summary - Hospital Course Diagnosis: Stroke: No - Discharge Data Discharge Date: 03/28/19 Discharge Disposition: Home, Self-Care 01 Condition: Good - Referral to Home Health Primary Care Physician: Dalton Cortes Sr, MD - Patient Summary/Data Hospital Course: Came in in respiratory distress and had bilateral pneumonia with hypoxemia. Given Levaquin and Rocephin. He made gradual improvement. CT of the chest needs to be follow up until clear. the Ultrasound showed Bilater hydro. etiology unknown. Namrata see in the office in one week. - Patient Instructions Diet: Heart Healthy Diet Activity: As Tolerated - Discharge Plan *PRESCRIPTION DRUG MONITORING PROGRAM REVIEWED*: No Prescriptions/Med Rec: Cefadroxil [Duricef] 500 mg PO Q12HR 5 Days #10 cap levoFLOXacin [Levaquin] 500 mg PO DAILY 5 Days #5 tab Home Medications: Home Meds Lisinopril 20 mg PO DAILY 09/03/14 [History] Naproxen Sodium [Aleve] 440 mg PO BID 09/07/14 [History] Aspirin 81 mg PO DAILY 03/24/19 [History] Metoprolol Succinate [Toprol XL] 25 mg PO DAILY 03/24/19 [History] Simvastatin 20 mg PO DAILY 03/24/19 [History] metFORMIN [Glucophage] 500 mg PO BIDMEALS 03/24/19 [History] Cefadroxil [Duricef] 500 mg PO Q12HR 5 Days #10 cap 03/28/19 [Rx] levoFLOXacin [Levaquin] 500 mg PO DAILY 5 Days #5 tab 03/28/19 [Rx] - Discharge Summary/Plan Comment DC Time >30 min.: No Discharge Summary/Plan Comment: Assessment/Plan: #1. Pneumonia bilateral: He is clinically improving so will continue with the antibiotics. Cultures are show no growth. Oxygen is off. CXR still shows bilat infiltrates CT of chest shows the pneumonia. will follow up in 1-2 weeks. #2. ASHD stable #3. HTN: Will continue with Meds #4. DM II stable #5. HLD: will continue with Simvastatin 20 mg. Plan home today on PO Levaquin and Duricef. - General Info Date of Service: 03/28/19 Functional Status: Reports: Pain Controlled - Review of Systems General: Reports: No Symptoms HEENT: Reports: No Symptoms Pulmonary: Reports: Cough Cardiovascular: Reports: No Symptoms Gastrointestinal: Reports: No Symptoms Genitourinary: Reports: No Symptoms Musculoskeletal: Reports: No Symptoms Skin: Reports: No Symptoms Neurological: Reports: No Symptoms Psychiatric: Reports: No Symptoms - Patient Data Vitals - Most Recent: Last Vital Signs Temp 98.2 F 03/28/19 10:39 Pulse 78 03/28/19 10:42 Resp 16 03/28/19 10:39 BP 146/66 H 03/28/19 10:39 Pulse Ox 94 L 03/28/19 10:39 Weight - Most Recent: 190 lb I&O - Last 24 hours: Intake & Output 03/27/19 03/28/19 03/28/19 22:59 06:59 14:59 Intake Total 1620 960 Balance 1620 960 Lab Results - Last 24 hrs: Laboratory Results - last 24 hr 03/28/19 Range/Units 04:10 Sodium 137 L (140-148) mmol/L Potassium 4.0 (3.6-5.2) mmol/L Chloride 101 (100-108) mmol/L Carbon Dioxide 30 (21-32) mmol/L Anion Gap 10.0 (5.0-14.0) mmol/L BUN 13 (7-18) mg/dL Creatinine 0.8 (0.8-1.3) mg/dL Est Cr Clr Drug Dosing 78.03 mL/min Estimated GFR (MDRD) > 60 (>60) Glucose 138 H (74-106) mg/dL Calcium 8.3 L (8.5-10.1) mg/dL Total Bilirubin 0.4 (0.2-1.0) mg/dL AST 59 H (15-37) U/L ALT 88 H (12-78) U/L Alkaline Phosphatase 235 H (46-116) U/L Total Protein 5.9 L (6.4-8.2) g/dL Albumin 2.0 L (3.4-5.0) g/dL Globulin 3.9 H (2.3-3.5) g/dL Albumin/Globulin Ratio 0.5 L (1.2-2.2) HECTOR Results - Last 24 hrs: Microbiology 03/24/19 12:25 Aerobic Blood Culture - Preliminary Blood - Arm, Left NO GROWTH AFTER 4 DAYS Anaerobic Blood Culture - Preliminary NO GROWTH AFTER 4 DAYS 03/24/19 12:29 Aerobic Blood Culture - Preliminary Blood - Arm, Right NO GROWTH AFTER 4 DAYS Anaerobic Blood Culture - Preliminary NO GROWTH AFTER 4 DAYS Med Orders - Current: Current Medications Acetaminophen (Tylenol) 650 mg PO Q4H PRN PRN Reason: Fever/Headache Last Admin: 03/25/19 23:30 Dose: 650 mg Albuterol (Proventil Neb Soln) 2.5 mg NEB Q4H [facility] Last Admin: 03/28/19 10:42 Dose: 2.5 mg Aspirin (Aspirin) 81 mg PO DAILY [facility] Last Admin: 03/28/19 09:01 Dose: 81 mg Ceftriaxone Sodium 1 gm/ (Sodium Chloride) 50 mls @ 100 mls/hr IV Q24H [facility] Last Admin: 03/27/19 14:42 Dose: 100 mls/hr Dextrose/Sodium Chloride (Dextrose 5%-Normal Saline) 1,000 mls @ 75 mls/hr IV ASDIRECTED [facility] Last Admin: 03/26/19 07:40 Dose: 75 mls/hr Levofloxacin/Dextrose 500 mg/ (Premix) 100 mls @ 100 mls/hr IV Q24H [facility] Last Admin: 03/28/19 12:59 Dose: Not Given Insulin Human Lispro (Humalog) 0 unit SUBCUT QIDACANDBED [facility]; Protocol Last Admin: 03/28/19 12:59 Dose: Not Given Lisinopril (Prinivil) 20 mg PO DAILY [facility] Last Admin: 03/28/19 09:01 Dose: 20 mg Metformin HCl (Glucophage) 500 mg PO BIDMEALS [facility] Last Admin: 03/28/19 09:01 Dose: 500 mg Metoprolol Succinate (Toprol Xl) 25 mg PO DAILY [facility] Last Admin: 03/28/19 09:02 Dose: 25 mg Simvastatin (Zocor) 20 mg PO DAILY [facility] Last Admin: 03/28/19 09:02 Dose: 20 mg Sodium Chloride (Saline Flush) 10 ml FLUSH ASDIRECTED PRN PRN Reason: Keep Vein Open Discontinued Medications Albuterol (Proventil Neb Soln) 2.5 mg NEB Q4H [facility] Last Admin: 03/25/19 07:08 Dose: 2.5 mg Sodium Chloride (Normal Saline) 75 mls @ 3 mls/sec IV ONETIME ONE Stop: 03/28/19 07:12 Last Admin: 03/28/19 07:32 Dose: 3 mls/sec Iopamidol (Isovue-300 (61%)) 100 ml IV . DIRECTED PRN PRN Reason: RADIOLOGY EXAM Stop: 03/28/19 07:12 Last Admin: 03/28/19 07:32 Dose: 100 ml Sodium Chloride (Saline Flush) 10 ml FLUSH ONETIME PRN PRN Reason: PER RADIOLOGY PROTOCOL Stop: 03/28/19 07:12 Last Admin: 03/28/19 07:32 Dose: 10 ml - Exam General: Reports: Alert, Oriented HEENT: Reports: Pupils Equal, Pupils Reactive, EOMI, Mucous Membr. Moist/[place] Neck: Reports: Supple Lungs: Reports: Decreased Breath Sounds Cardiovascular: Reports: Regular Rate, Regular Rhythm GI/Abdominal Exam: Normal Bowel Sounds, Soft, Non-Tender, No Organomegaly, No Distention, No Abnormal Bruit, No Mass, Pelvis Stable Extremities: Normal Inspection, Normal Range of Motion, Non-Tender, No Pedal Edema, Normal Capillary Refill Skin: Reports: Warm, Dry, Intact Neurological: Reports: No New Focal Deficit Psy/Mental Status: Reports: Alert, Normal Affect, Normal Mood
[2019-03-28] MEDS ORDERED: cefTRIAXone 1 GM, Lidocaine 1% 2.1 ML IM ONE ×2 (14:00)
== END 2019-03-28 14:25 | disposition home or self-care (01) | DRG 194 ==
LOC: JP.2SS 11:32
PROVIDERS: ADMIT Internal Medicine; ATTEND Internal Medicine
DX: J18.9 Pneumonia, unspecified organism (principal); N13.30 Unspecified hydronephrosis; I25.10 Atherosclerotic heart disease of native coronary artery without angina pectoris; I10 Essential (primary) hypertension; E11.9 Type 2 diabetes mellitus without complications; E78.5 Hyperlipidemia, unspecified; E78.00 Pure hypercholesterolemia, unspecified; M19.90 Unspecified osteoarthritis, unspecified site; Z96.649 Presence of unspecified artificial hip joint; Z79.82 Long term (current) use of aspirin; Z79.84 Long term (current) use of oral hypoglycemic drugs; Z79.899 Other long term (current) drug therapy; Z95.5 Presence of coronary angioplasty implant and graft
CPT/HCPCS: 36415; 71046; 71046-26; 71260; 76700; 80048; 80053; 81001; 82962; 84450; 84460; 85025; 87040; 87070; 87205; 94640; 94667; 94668; A9270-GY; J0696; J1815; J1956; J2001; J7050; Q9967

== ENCOUNTER 2020-01-20 07:47 | Day surgery (SDC) | payer MEDICARE ==
[~2020-01-20 07:47] MED LIST: Bupivacaine 0.5% 50 ML MDV ONE; Lidocaine 1% with EPINEPHrine 1:100,000 50 ML MDV ONE; Midazolam 1 MG/ML 2 ML SDV ONE; Propofol 200 MG/20 ML SDV ONE; fentaNYL 100 MCG/2 ML SDV ONE
[2020-01-20] MEDS ORDERED: Acetaminophen 500 MG Tab PO ONE (08:30)
[2020-01-20] MEDS ORDERED: Dextrose 5%-Lactated Ringers 1,000 ML IV SCH (08:30)
[2020-01-20] MEDS ORDERED: cefOXitin 2 GM in Sodium Chloride 0.9% 50 ML IV ONE (08:30)
[2020-01-20] MEDS ORDERED: Propofol 200 MG/20 ML SDV ONE (09:20)
[2020-01-20] MEDS ORDERED: Ketorolac 60 MG/2 ML SDV IM ONE (10:03)
[2020-01-20] MEDS ORDERED: Acetaminophen/HYDROcodone 325-5 MG Tab PO PRN (10:58)
[2020-01-20 11:12] VITALS: BP 115/85; PULSE 59
--- NOTE | 2020-01-27 10:03 | OR ---
DATE OF PROCEDURE: 01/20/2020 SURGEON: Kayden Hunt MD PREOPERATIVE DIAGNOSIS: Symptomatic left hydrocele. POSTOPERATIVE DIAGNOSES: 1. 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 2. Smaller left hydrocele. 3. Left ilioinguinal nerve at risk for scar entrapment. PROCEDURE: Left inguinal exploration with: 1. Repair of incarcerated left inguinal hernia with mesh (35327). 2. Hydrocelectomy (58306). 3. Excision of portion of left ilioinguinal nerve (79111). ANESTHESIA: Local plus IV sedation. ADA ACCOMMODATION CONSULTANT: Chinyere Downey PA-C INDICATIONS FOR PROCEDURE: This is a 74-year-old presenting with an increasingly large scrotal mass on preoperative imaging. This appeared to be a hydrocele. The patient was also noted to have a hydrocele on the right side with some stone disease at that level as well. Plan is to proceed with left inguinal exploration, hydrocelectomy, repair of any hernia that might be identified. The procedure is as indicated. Potential risks including bleeding, infection, injury to underlying viscera, problems with a hernia recurring, or chronic pain persisting postoperatively were reviewed, and the patient wishes to proceed. DETAILS OF PROCEDURE: The patient was taken to the operating room, placed in the supine position. After IV sedation was administered, the abdomen and groin areas were prepped and draped. The left inguinal area was then anesthetized with 1% lidocaine mixed with Marcaine and a standard left inguinal incision was made and carried down through the skin and subcutaneous tissue, through the external oblique aponeurosis. Subaponeurotic flaps were then raised superiorly and inferiorly and the cord structures were then mobilized upward. The patient was noted to have at this point a relatively small hydrocele, but the bulk of the fullness in that area appeared to be related to a large indirect inguinal hernia that was associated with an extremely large lipoma of the cord. The latter was dissected free down to the level of the internal ring where it was excised. The testicle was mobilized upward. A relatively small hydrocele was then excised with free edges being suture ligated with a running 3-0 Vicryl stitch. The inguinal hernia was then repaired by means of a mesh plug technique. An extra large mesh plug was placed into the defect and affixed to the Jose's ligament with some titanium tacking screws to the underside of the conjoint tendon medially, superiorly, and laterally, and slightly inferiorly with horizontal mattress sutures of 2-0 Vicryl stitch. The free edge of the conjoint tendon was then sutured to the shelving portion of the inguinal ligament with a running 0 Vicryl stitch as well. At this point, the area of the inguinal floor was examined. The left ilioinguinal nerve laid directly across the point where the flat portion of the mesh plug system would be placed. This was then divided and excised out to the lateral aspect of the incision to minimize chances of postoperative neuropathic pain. Of note, there was some concern regarding a varicocele present bilaterally and examination of the venous plexus and the left cord structures did not show any signs of significant varicocele. Over the cord structures, the external oblique aponeurosis was approximated with 3-0 Vicryl stitch as was the April's fascia. The subcutaneous tissue was approximated further with some additional 4-0 Vicryl stitch and the skin with 4-0 Vicryl subcuticular stitch. Dressing was applied. The patient was taken to the recovery room in satisfactory condition. Physician commercial escrow assistant, Chinyere Downey played an essential role in assisting in this case, helping to position the patient, retract structures as needed as well as suturing and cutting sutures when indicated. Her presence improved patient safety and decreased the operative time. Kayden Hunt MD /[id number]
== END 2020-01-20 11:30 | disposition home or self-care (01) ==
LOC: JP.SDS 07:47
PROVIDERS: ATTEND Surgery
DX: K40.30 Unilateral inguinal hernia, with obstruction, without gangrene, not specified as recurrent (principal); N43.3 Hydrocele, unspecified; D17.6 Benign lipomatous neoplasm of spermatic cord; I10 Essential (primary) hypertension; I25.10 Atherosclerotic heart disease of native coronary artery without angina pectoris; Z95.5 Presence of coronary angioplasty implant and graft; E11.9 Type 2 diabetes mellitus without complications
CPT/HCPCS: 49507; 55040; 88302; 88304; 88305; A9270; C1713; C1781; J1885; J2250; J2704; J3010; J3490; J7121

== ENCOUNTER 2024-08-11 13:16 | Emergency (ER) | payer MEDICARE ==
[2024-08-11] MEDS ORDERED: Sodium Chloride 0.9% 10 ML Syringe FLUSH PRN (14:21)
[2024-08-11 14:38] LABS: BASOPHILS ABSOLUTE AUTO 0.06 K/uL (0.00-0.10); BASOPHILS PERCENT AUTO 0.9 % (0.1-1.3); EOSINOPHILS ABSOLUTE AUTO 0.16 K/uL (0.00-0.40); EOSINOPHILS PERCENT AUTO 2.5 % (0.0-5.4); HEMOGLOBIN 14.2 g/dL (12.9-16.9); IMMATURE GRAN ABSOLUTE AUTO 0.03 K/uL (0.00-0.23); IMMATURE GRAN PERCENT AUTO 0.5 % (0.0-0.7); LYMPHOCYTES ABSOLUTE AUTO 1.14 K/uL (0.8-3.3); LYMPHOCYTES PERCENT AUTO 17.6 % (11.4-47.7); MEAN CORPUSCULAR HEMOGLOBIN 31.1 pg (31.6-35.5); MEAN CORPUSCULAR HGB CONC 32.3 g/dL (31.6-35.5); MEAN CORPUSCULAR VOLUME 96.5 fL (81.4-99.0); MONOCYTES ABSOLUTE AUTO 0.73 K/uL (0.20-0.90); MONOCYTES PERCENT AUTO 11.2 % (3.3-12.6); NEUTROPHILS ABSOLUTE AUTO 4.37 K/uL (1.0-7.6); NEUTROPHILS PERCENT AUTO 67.3 % (40.0-78.1); PLATELET COUNT,PLT 197 K/uL (130-375); RED BLOOD CELL COUNT 4.56 M/uL (4.14-5.76); WHITE BLOOD CELL COUNT,WBC 6.5 K/uL (3.2-11.0)
[2024-08-11] MEDS: Furosemide 40 MG/4 ML VIAL IVPUSH ONE (14:38)
[2024-08-11 15:04] LABS: ANION GAP 13.4 mmol/L (5.0-14.0); CALCIUM 9.8 mg/dL (8.5-10.1); CREATININE 1.3 mg/dL (0.8-1.3); EST CRCL DRUG DOSING (CG) 44.49 mL/min
[2024-08-11 15:18] VITALS: BP 144/60; PULSE 40
== END 2024-08-11 16:25 | disposition home or self-care (01) ==
LOC: JP.ED 13:16
DX: I11.0 Hypertensive heart disease with heart failure (principal); I50.9 Heart failure, unspecified; E78.00 Pure hypercholesterolemia, unspecified; E11.9 Type 2 diabetes mellitus without complications; Z79.899 Other long term (current) drug therapy; Z79.82 Long term (current) use of aspirin
CPT/HCPCS: 36415; 71046; 80048; 83880; 85025; 93005; 96374; 99285; J1938; 93010; 99283

== ENCOUNTER 2024-10-11 06:17 | Emergency (ER) | payer MEDICARE ==
[2024-10-11 06:42] LABS: BASOPHILS ABSOLUTE AUTO 0.04 K/uL (0.00-0.10); BASOPHILS PERCENT AUTO 0.9 % (0.1-1.3); EOSINOPHILS ABSOLUTE AUTO 0.07 K/uL (0.00-0.40); EOSINOPHILS PERCENT AUTO 1.6 % (0.0-5.4); IMMATURE GRAN ABSOLUTE AUTO 0.03 K/uL (0.00-0.23); IMMATURE GRAN PERCENT AUTO 0.7 % (0.0-0.7); LYMPHOCYTES ABSOLUTE AUTO 0.25 K/uL (0.8-3.3); LYMPHOCYTES PERCENT AUTO 5.6 % (11.4-47.7); MONOCYTES ABSOLUTE AUTO 0.18 K/uL (0.20-0.90); MONOCYTES PERCENT AUTO 4.0 % (3.3-12.6); NEUTROPHILS ABSOLUTE AUTO 3.89 K/uL (1.0-7.6); NEUTROPHILS PERCENT AUTO 87.2 % (40.0-78.1); PLATELET COUNT,PLT 106 K/uL (130-375); RED BLOOD CELL COUNT 4.74 M/uL (4.14-5.76); WHITE BLOOD CELL COUNT,WBC 4.5 K/uL (3.2-11.0)
[2024-10-11 06:45] LABS: APPEARANCE,URINE CLEAR (CLEAR); GLUCOSE,URINE NEGATIVE (NEGATIVE); OCCULT BLOOD,URINE TRACE-LYSED (NEGATIVE)
[2024-10-11] MEDS: Furosemide 20 MG/2 ML VIAL IVPUSH ONE (06:50)
[2024-10-11 06:56] LABS: EPITHELIAL CELLS,URINE NOT SEEN
[2024-10-11 07:07] LABS: A/G RATIO 0.9 (1.2-2.2); ALANINE AMINOTRANSFERASE,ALT 61 U/L (12-78); ASPARTATE AMNIOTRANSFERASE,AST 66 U/L (15-37); BILIRUBIN TOTAL 1.3 mg/dL (0.2-1.0); BLOOD UREA NITROGEN,BUN 29 mg/dL (7-18); CARBON DIOXIDE,CO2 23 mmol/L (21-32); CHLORIDE,CL 98 mmol/L (100-108); CREATININE 1.4 mg/dL (0.8-1.3); EST CRCL DRUG DOSING (CG) 41.31 mL/min; ESTIMATED GFR 52 mL/min (>60); GLUCOSE RANDOM 150 mg/dL (74-106); POTASSIUM,K 4.5 mmol/L (3.6-5.2); PROTEIN TOTAL,TP 6.6 g/dL (6.4-8.2); SODIUM,NA 132 mmol/L (140-148)
[2024-10-11 07:09] LABS: TROPONIN I HIGH SENSITIVITY 87.3 pg/mL (<=60.3)
[2024-10-11] MEDS: Nitroglycerin 2% Oint 1 GM UD Packet TOP ONE (07:45)
[2024-10-11] MEDS: Furosemide 40 MG/4 ML VIAL IVPUSH ONE (11:43)
[2024-10-11 14:56] VITALS: BP 105/23; PULSE 47
[2024-10-11 15:40] LABS: A/G RATIO 1.0 (1.2-2.2); ALANINE AMINOTRANSFERASE,ALT 66 U/L (12-78); ASPARTATE AMNIOTRANSFERASE,AST 75 U/L (15-37); BILIRUBIN TOTAL 1.4 mg/dL (0.2-1.0); BLOOD UREA NITROGEN,BUN 28 mg/dL (7-18); CARBON DIOXIDE,CO2 27 mmol/L (21-32); CHLORIDE,CL 97 mmol/L (100-108); CREATININE 1.3 mg/dL (0.8-1.3); EST CRCL DRUG DOSING (CG) 44.49 mL/min; ESTIMATED GFR 57 mL/min (>60); GLUCOSE RANDOM 114 mg/dL (74-106); POTASSIUM,K 4.3 mmol/L (3.6-5.2); PROTEIN TOTAL,TP 6.9 g/dL (6.4-8.2); SODIUM,NA 133 mmol/L (140-148)
== END 2024-10-11 17:25 ==
LOC: JP.ED 06:17
DX: I21.9 Acute myocardial infarction, unspecified (principal); I11.0 Hypertensive heart disease with heart failure; I50.9 Heart failure, unspecified; I25.2 Old myocardial infarction; E78.00 Pure hypercholesterolemia, unspecified; E11.9 Type 2 diabetes mellitus without complications; Z79.899 Other long term (current) drug therapy; Z79.02 Long term (current) use of antithrombotics/antiplatelets; Z79.84 Long term (current) use of oral hypoglycemic drugs; Z79.82 Long term (current) use of aspirin; Z87.891 Personal history of nicotine dependence
CPT/HCPCS: 36415; 71045; 80053; 81001; 83605; 83880; 84484; 85025; 93005; 93010; 96372; 96374; 96376; 99285; 99291; 99292; A9270; J1650; J1938